=== PATIENT | male | born 1970 | race Two or more races ===

== ENCOUNTER → 2020-11-03 | Day surgery (SDC) | payer OTHER | END | disposition home or self-care (01) | LOC: ADM 10-30 15:00 → AMB-ENDOS 07:52 | PROVIDERS: ATTEND Surgery | DX: D12.2 Benign neoplasm of ascending colon (principal); K62.82 Dysplasia of anus; Z20.822 Contact with and (suspected) exposure to COVID-19 ==

== ENCOUNTER 2020-12-04 09:45 | Inpatient (IN) | payer OTHER ==
[~2020-12-04] VITALS: Ht 172.7 cm; Wt 108.9 kg
[2020-12-05] MEDS ORDERED: CARVEDILOL12.5 MG (15:24)
[2020-12-05] MEDS ORDERED: METFORMIN HCL1000 M2 PO (15:24)
[2020-12-05] MEDS ORDERED: LIPITOR40 MG PO (15:24)
[2020-12-05] MEDS ORDERED: AVALIDE 300-121 EACH PO (15:24)
[2020-12-15] MEDS ORDERED: CARAFATE1 GM/10 ML PO (11:10)
[2020-12-15] MEDS ORDERED: PRILOSEC OTC20 MG PO (11:10)
[2020-12-15] MEDS ORDERED: NEURONTIN300 MG PO (11:10)
== END 2020-12-15 12:54 | disposition home or self-care (01) | DRG 330 ==
LOC: SURG 12-09 06:15 → O/R 12-09 06:15 → SURH 12-09 09:45 → SURG 12-09 15:26
PROVIDERS: ADMIT Surgery; ATTEND Surgery
PROC: 0D1N4Z4 Bypass Sigmoid Colon to Cutaneous, Percutaneous Endoscopic Approach (ICD-10-PCS; 2020-12-09)
PROC: 07BC4ZX Excision of Pelvis Lymphatic, Percutaneous Endoscopic Approach, Diagnostic (ICD-10-PCS; 2020-12-09)
PROC: 0WQF4ZZ Repair Abdominal Wall, Percutaneous Endoscopic Approach (ICD-10-PCS; 2020-12-09)
PROC: 0D1B4Z4 Bypass Ileum to Cutaneous, Percutaneous Endoscopic Approach (ICD-10-PCS; 2020-12-09)
PROC: 3E0F7SF Introduction of Other Gas into Respiratory Tract, Via Natural or Artificial Opening (ICD-10-PCS; 2020-12-09)
PROC: 3E0F7GC Introduction of Other Therapeutic Substance into Respiratory Tract, Via Natural or Artificial Opening (ICD-10-PCS; 2020-12-09)
PROC: 4A12X4Z Monitoring of Cardiac Electrical Activity, External Approach (ICD-10-PCS; 2020-12-09)
PROC: 4A033R1 Measurement of Arterial Saturation, Peripheral, Percutaneous Approach (ICD-10-PCS; 2020-12-09)
PROC: 0DTP4ZZ Resection of Rectum, Percutaneous Endoscopic Approach (ICD-10-PCS; principal; 2020-12-09 14:30)
DX: C20 Malignant neoplasm of rectum (principal); K62.5 Hemorrhage of anus and rectum; K43.5 Parastomal hernia without obstruction or gangrene; J45.20 Mild intermittent asthma, uncomplicated; K59.09 Other constipation; I11.9 Hypertensive heart disease without heart failure; E66.01 Morbid (severe) obesity due to excess calories; E11.9 Type 2 diabetes mellitus without complications; E78.5 Hyperlipidemia, unspecified; Z20.822 Contact with and (suspected) exposure to COVID-19